=== PATIENT | female | born 1990 | race African-American/Black ===

== ENCOUNTER 2022-04-04 15:08 | Emergency (ER) | payer MEDICAID ==
[~2022-04-04] VITALS: Ht 177.8 cm; Wt 95.0 kg
[2022-04-04 15:12] VITALS: BP 136/87
[2022-04-04] MEDS ORDERED: IBUPROFEN 400MG TABLET PO ONE (15:45)
[2022-04-04] MEDS ORDERED: IBUP-2028 MT (17:12)
== END 2022-04-04 17:50 | disposition home or self-care (01) ==
LOC: ER 15:08
DX: M25.562 Pain in left knee (principal); M25.512 Pain in left shoulder; M54.59 Other low back pain; G89.11 Acute pain due to trauma; R03.0 Elevated blood-pressure reading, without diagnosis of hypertension; V49.49XA Driver injured in collision with other motor vehicles in traffic accident, initial encounter; Y93.89 Activity, other specified; Y92.488 Other paved roadways as the place of occurrence of the external cause
CPT/HCPCS: 72100; 73030; 73560; 81025; 99284